=== PATIENT | female | born 1995 | race Caucasian/White ===

== ENCOUNTER → 2020-11-17 | Outpatient (CLI) | payer OTHER ==
--- NOTE | 2020-11-17 14:57 | RAD ---
EXAM: Left breast ultrasound. HISTORY: Palpable focus left breast. COMPARISON: None. FINDINGS: Sonographic evaluation of the left breast was performed at the site of palpable concern. In the retroareolar 3:00 position 1 cm from the nipple, only dense parenchyma is seen. There is one m ildly dilated normal duct without an intraductal mass. There is no suspicious sonographic finding. Images of the left axilla reveal no pathologic-appearing lymph nodes. IMPRESSION: 1. BI-RADS Category 1: Negative. 2. Recommend ongoing clinical follow-up of palpable foci. Electronically signed by: Syed Kwan MD (11/17/2020 2:54 PM) [id number]
== END ==
LOC: MAMMO 13:47
PROVIDERS: ATTEND Preventive Medicine Occupational Medicine
DX: R92.2 Inconclusive mammogram (principal)
CPT/HCPCS: 76641